=== PATIENT | male | born 1965 | race Caucasian/White ===

== ENCOUNTER 2017-05-27 06:40 | Emergency (ER) | payer MEDICAID ==
[~2017-05-27] VITALS: Ht 165.1 cm; Wt 75.0 kg
[2017-05-27] MEDS ORDERED: MORPHINE SULFATE 4 MG/ML CPJ (NOT FOR IM USE) IV STA (07:12)
[2017-05-27] MEDS ORDERED: TETANUS, DIPHTHERIA, PERTUSSIS VAC/PF 0.5ML (>7YR OLD) IM ONE (07:15)
[2017-05-27 07:47] LABS: INR 1.1; PROTHROMBIN TIME 11.8 sec (9.4-11.6)
[2017-05-27 07:50] LABS: BASOPHILS % 0.4 % (0.0-2.0); EOSINOPHILS % 1.1 % (0.0-5.0); HEMATOCRIT. 41.8 % (42.0-52.0); HEMOGLOBIN. 14.2 g/dL (14.0-18.0); LYMPHOCYTES % 13.8 % (20.0-50.0); MEAN CORPUSCULAR HEMOGLOBIN 30.4 pg (28.0-32.0); MEAN CORPUSCULAR VOLUME 89.5 fL (80.0-94.0); MEAN PLATELET VOLUME 9.3 fl (7.4-10.4); MONOCYTES % 5.6 % (2.0-8.0); NEUTROPHILS % 79.1 % (40.0-76.0); PLATELET 200 x1000/uL (130-400); RED BLOOD CELL COUNT 4.67 mill/uL (4.7-6.1); RED CELL DISTRIBUTION WIDTH 14.6 % (11.6-14.6)
[2017-05-27 07:54] LABS: CARBON DIOXIDE 27 mEq/L (21-32); CHLORIDE 104 mEq/L (98-107)
[2017-05-27] MEDS ORDERED: LIDOCAINE HCL 1% 20ML VIAL (Pyxis) INJ MC ONE (09:00)
[2017-05-27 10:33] VITALS: BP 109/75
== END 2017-05-27 10:46 | disposition home or self-care (01) ==
LOC: ER 07:35
DX: S31.31XA Laceration without foreign body of scrotum and testes, initial encounter (principal); R79.1 Abnormal coagulation profile; X99.1XXA Assault by knife, initial encounter; Y93.89 Activity, other specified; Y92.89 Other specified places as the place of occurrence of the external cause; Y99.8 Other external cause status; Z98.890 Other specified postprocedural states
CPT/HCPCS: 12002; 36415; 76870; 80053; 85025; 85610; 86850; 86900; 86901; 90471; 90715; 93976; 99285; J3490; X7700; Z7610

== ENCOUNTER 2017-05-30 11:06 | Emergency (ER) | payer MEDICAID ==
[~2017-05-30] VITALS: Ht 167.6 cm; Wt 72.0 kg
[2017-05-30 11:33] VITALS: BP 178/105
== END 2017-05-30 14:22 | disposition home or self-care (01) ==
LOC: ER 11:29
DX: Z48.00 Encounter for change or removal of nonsurgical wound dressing (principal); R03.0 Elevated blood-pressure reading, without diagnosis of hypertension
CPT/HCPCS: 99281

== ENCOUNTER 2017-06-06 10:59 | Emergency (ER) | payer MEDICAID ==
[~2017-06-06] VITALS: Ht 157.5 cm; Wt 72.0 kg
[2017-06-06] MEDS ORDERED: IBUPROFEN 600MG TABLET PO ONE (12:15)
[2017-06-06] MEDS ORDERED: CLONIDINE 0.1MG TABLET PO ONE (12:30)
[2017-06-06 16:48] VITALS: BP 157/89
== END 2017-06-06 17:20 | disposition home or self-care (01) ==
LOC: ER 12:17
DX: Z48.00 Encounter for change or removal of nonsurgical wound dressing (principal); N50.819 Testicular pain, unspecified
CPT/HCPCS: 76870; 93976; 99284